=== PATIENT | male | born 1965 | race Hispanic/Latino ===

== ENCOUNTER 2016-12-18 07:04 | Emergency (ER) | payer OTHER ==
[~2016-12-18] VITALS: Ht 182.9 cm; Wt 157.8 kg
[~2016-12-18 07:04] MED LIST: ALBUTEROL0.09 MG/A1 INH; AMBIEN 10MG10 MG PO; ASPIRIN CHILDRE81 MG PO; ATORVASTATIN CA40 MG PO; CALCIPOTRIENE TOP; CLEOCIN HCL150 MG PO; CLEOCIN HCL300 MG PO; CLINDAMYCIN HY300 MG PO; CLINDAMYCIN300 MG PO; CLOPIDOGREL75 M1 PO; COSENTYX P150 MG/11 SC; DILAUDID2 M1 PO; ENBREL50 MG/ML SC; EXFORGE HCT 101 TA2 PO; FLEXERIL10 MG PO; FOLIC ACID 1 MG PO; FOLIC ACID 1MG (1 MG PO; IBUPROFEN800 M1 PO; K-TAB ER20 MEQ PO; LASIX40 M1 PO; LEVAQUIN500 MG PO; LISINOPRIL40 M1 PO; METHOTREXATE2.5 M1 PO; METOPROLOL TAR100 M1 PO; NEXIUM 40MG40 MG PO; NORCO 325 MG-51 TAB PO; OTEZLA30 MG PO; OXYCODONE HCL10 MG PO; OXYCODONE HCL30 M1 PO; OXYCODONE HYDRO30 MG; OXYCODONE HYDRO30 MG PO; PERCOCET 325 MG1 TA2 PO; PERCOCET 325 MG1 TAB PO; PLAVIX 75MG TAB75 MG PO; PRINIVIL 5MG5 MG PO; TOPCARE ASPIRI325 MG PO; TOPROL XL25 MG PO; VALIUM5 M2 PO; VIAGRA25 M1 PO; [UNRECOGNIZED DRUG - CODE] TOP
[2016-12-18 07:06] VITALS: BP 167/92
--- NOTE | 2016-12-18 07:29 | ED UPPER/LOWER EXTREMITY COMPL ---
History of Present Illness General Chief Complaint: Lower Extremity Problems Stated Complaint: LEGS PAIN S/P TAKING TALTZ Source: patient, old records Exam Limitations: no limitations Vital Signs & Intake/Output Vital Signs & Intake/Output Vital Signs Date Time Temp Pulse Resp B/P B/P Pulse O2 O2 Flow FiO2 Mean Ox Delivery Rate 12/18 0706 97.8 90 18 167/92 97 Room Air Allergies Coded Allergies: Penicillins (Mild, RASH 12/08/15) sulfamethoxazole (From BACTRIM) (Mild, RASH 12/08/15) trimethoprim (From BACTRIM) (Mild, RASH 12/08/15) Reconcile Medications Aspirin (Aspirin*) 81 MG TAB.CHEW 1 TAB PO DAILY HEART HEALTH (Reported) Clindamycin HCl 300 MG CAPSULE 1 CAP PO TID Cellulitis Clopidogrel Bisulfate (Clopidogrel) 75 MG TABLET 1 TAB PO DAILY BLOOD THINNER (Reported) Empagliflozin (Jardiance) 10 MG TABLET 1 TAB PO DAILY DIABETES (Reported) Furosemide (Lasix) 40 MG TABLET 120 MG PO DAILY WATER PILL (Reported) Ixekizumab (Taltz Autoinjector) 80 MG/ML AUTO.INJCT 1 INJ UNKNOWN (Reported) Lisinopril 40 MG TABLET 1 TAB PO DAILY HEART (Reported) Metformin HCl (Metformin HCl ER) 500 MG TAB.ER.24H 1 TAB PO DAILY DIABETES ( Reported) Metoprolol Tartrate 100 MG TABLET 1 TAB PO BID HEART (Reported) Oxycodone HCl 30 MG TABLET 1 TAB PO DAILY PRN PAIN (Reported) Potassium Chloride (K-Tab ER) 20 MEQ TABLET.ER 1 TAB PO DAILY SUPPLEMENT ( Reported) Rosuvastatin Calcium (Crestor) 10 MG TABLET 1 TAB PO DAILY CHOLESTEROL ( Reported) Secukinumab (Cosentyx Pen (2 Pens)) 150 MG/1 ML PEN.INJCTR 300 MG SC QTHURS PSORIASIS (Reported) Triage Note: PT STATES THAT THAT HE JUST STARTED A NEW MEDICATION 2 WEEKS AGO ( TALTZ) FOR HIS ARTHRITIS AND THEN WHEN HE GAVE HIMSELF THE SHOT IN BILATERAL UPPER THIGHS 2 WEEKS AGO HE HAD PAIN AND PAIN HAS BEEN CONSTANT TO INJECTION SITE, CAME IN TODAY DUE TO BOTH AREAS ARE RED AND HOT , THAT STARTED LAST PM. Triage Nurses Notes Reviewed? yes HPI: Mr Martinez is a 51-year-old gentleman with past medical history of psoriasis, hypertension and history of acute coronary syndrome who presented to the emergency department this morning complaining of pain and erythema in his bilateral anterior thighs. Patient states 2 weeks ago he started a new medication, Taltz (Ixekizumab) which was prescribed by his coal handler and pulling unit operator for worsening nonresponsive psoriasis. The patient reports that since taking this medication he felt that his psoriasis has been better controlled. He has however continued to experience tenderness at the site of where he injected the medication. Early this morning at approximately 3 AM he noted at the injection site (anterior thighs bilaterally) he developed signs of erythema and increased tenderness.The pain is rateed at 9 out of 10. Described as a sharp and shooting pain with occasional needle sensations. He subsequently decided to come into the emergency department for further evaluation. He denies any fever, chills, nausea, vomiting. His primary care physician is Dr. Gomez. His coal handler Dr. Rothman. His pulling unit operator is Dr. Spear Reports good medication compliance. (NGOZI LYN,PAUL) Past History Travel History Traveled to [place] past 21 day No Medical History Any Pertinent Medical History? 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 Yes (NGOZI LYN,PAUL) Review of Systems Review of Systems Constitutional: Denies: chills, diaphoresis, fever, malaise, weakness. Respiratory: Denies: cough, hemoptysis, orthopnea, short of breath, sputum production. Cardiovascular: Denies: chest pain, edema, orthopena, palpitations. Gastrointestinal/Abdominal: Denies: abdominal pain, constipation, diarrhea, eructation, flatus. Genitourinary: Denies: discharge, dysuria, frequency, hematuria, hesitation, nocturia. Musculoskeletal: Reports: muscle pain. Denies: back pain, gout, joint pain, joint swelling, muscle stiffness. Skin: Reports: change in skin color, erythema. Denies: lesions, lymphangitis, lumps, moles. Neurological/Psychological: Denies: ataxia, cognitive dysfunction, confusion, depressed. (PAUL MELVIN MD) Physical Exam Physical Exam General Appearance: well developed/nourished, no apparent distress, alert, awake Head: atraumatic Cardiovascular/Respiratory: normal breath sounds Peripheral Pulses: 4+ dorsalis pedis (R), 4+ dorsalis pedis (L) Gastrointestinal: Normal. BS + Back: normal inspection, normal range of motion Shoulder Left: normal range of motion Shoulder Right: normal range of motion Leg Left: pain, soft tissue tenderness, Indurated. Erythematous. 5 cm x 5 cm Leg Right: pain, soft tissue tenderness, Indurated. Erythmatous, 5 cm x 5cm. (PAUL MELVIN MD) Progress Differential Diagnosis: cellulitis, Drug Reaction. Plan of Care: Will prescribe antibiotics. Given patient's history of various medication allergies he will be given clindamycin. (APUL MELVIN MD) Departure Departure Disposition: HOME OR SELF CARE Condition: Stable Clinical Impression Primary Impression: Cellulitis Referrals: CARMEN LANZA DO (PCP/Family) Additional Instructions: Please take medication as prescribed. Please inform your primary care physician of this visit to the emergency department. Please inform your primary care physician of the treatment administered to you. Please use warm compresses at this area of redness every 8-12 hours. Please follow-up with your coal handler and pulling unit operator as soon as you leave here today. You should see them in the next 24 - 48 hours. Please inform the offices of both physicians that you were seen this morning at [facility]. We recommend that you do not take any additional medications at this present site until you have sought medical clearance from your care providers. Should you experience worsening fever, chills, nausea, vomiting or increased pain, please come back to the emergency department for additional care and workup. Departure Forms: Customer Survey General Discharge Information Prescriptions: Current Visit Scripts Clindamycin HCl 1 CAP PO TID #21 CAP (PAUL MELVIN MD) PA/DIRECTOR OF MARKET RESEARCH Co-Sign Statement Statement: ED Attending supervision documentation- [X] I saw and evaluated the patient. I have also reviewed all the pertinent lab results and diagnostic results. I agree with the findings and the plan of care as documented in the PA's/DIRECTOR OF MARKET RESEARCH's documentation. [X] I have reviewed the ED Record and agree with the PA's/DIRECTOR OF MARKET RESEARCH's documentation. [] Additions or exceptions (if any) to the PAs/DIRECTOR OF MARKET RESEARCH's note and plan are summarized below: [] (RUSH LYN,KRISTIE)
[2016-12-18] MEDS ORDERED: CRESTOR10 M1 PO (07:54)
[2016-12-18] MEDS ORDERED: JARDIANCE10 M1 PO (07:54)
[2016-12-18] MEDS ORDERED: METFORMIN HCL500 M4 PO (07:54)
[2016-12-18] MEDS ORDERED: TALTZ AUTO80 MG/1 ML (08:00)
[2016-12-18] MEDS ORDERED: ASPIRIN81 M4 PO (08:00)
[2016-12-18] MEDS ORDERED: CLINDAMYCIN HC300 M1 PO (08:17)
== END 2016-12-18 08:26 ==
LOC: ERH 07:04
DX: L03.115 Cellulitis of right lower limb (principal); L03.116 Cellulitis of left lower limb

== ENCOUNTER 2017-11-09 17:12 | Emergency (ER) | payer OTHER ==
[~2017-11-09] VITALS: Ht 182.9 cm; Wt 158.8 kg
[~2017-11-09 17:12] MED LIST changes: +ASPIRIN EC81 M1 PO; +ASPIRIN81 M4 PO; +CARDIZEM CD120 M2 PO; +CARDIZEM CD180 M1 PO; +CLINDAMYCIN HC300 M1 PO; +CRESTOR10 M1 PO; +DOXYCYCLINE HY100 M4 PO; +ELIQUIS5 M1 PO; +JARDIANCE10 M1 PO; +KEFLEX500 M1 PO; +METFORMIN HCL500 M4 PO; +OXYCODONE HCL E10 MG PO; +PERCOCET 5-3251 EACH PO; +TALTZ AUTO80 MG/1 ML
[2017-11-09 17:45] LABS: ABSOLUTE BASOPHIL COUNT 0 /CUMM (0.0-0.2); ABSOLUTE EOSINOPHIL COUNT 0.3 /CUMM (0.0-0.7); ABSOLUTE LYMPH COUNT 1.5 /CUMM (1.2-3.4); ABSOLUTE MONOCYTE COUNT 0.8 /CUMM (0.10-0.60); BASOPHIL % 0.1 % (0.0-2.0); EOSINOPHIL % 3.4 % (0-5); HEMATOCRIT 47.3 % (42-52); MEAN CORPUSCULAR VOLUME 84.7 FL (80.0-94.0); MEAN PLATELET VOLUME 8.3 FL (7.4-10.4); PLATELET COUNT 222 /CUMM (130-400); RBC DISTRIBUTION WIDTH 14.9 % (11.5-14.5); RED BLOOD CELL CT 5.59 /CUMM (4.70-6.10); WHITE BLOOD CELL COUNT 9.6 /CUMM (4.8-10.8)
--- NOTE | 2017-11-09 18:13 | ED GI/GU/ABDOMINAL COMPLAINT ---
History of Present Illness General Chief Complaint: General Adult Stated Complaint: ABD PAIN X4 DAYS, STARTED WHEN WENT TO [place] Source: patient, old records Exam Limitations: no limitations Vital Signs & Intake/Output Vital Signs & Intake/Output Vital Signs Date Time Temp Pulse Resp B/P B/P Pulse O2 O2 Flow FiO2 Mean Ox Delivery Rate 11/09 1922 98.3 88 22 148/79 99 Room Air 11/09 1920 Room Air 11/09 1716 97.4 88 20 163/84 98 Room Air Allergies Coded Allergies: Penicillins (Mild, RASH 05/29/17) sulfamethoxazole (From BACTRIM) (Mild, RASH 05/29/17) trimethoprim (From BACTRIM) (Mild, RASH 05/29/17) Reconcile Medications Apixaban (Eliquis) 5 MG TABLET 5 MG PO BID ATRIAL FIBRILLATION . Aspirin (Ecotrin*) 81 MG TABLET.DR 1 TAB PO DAILY CAD (Reported) Diltiazem HCl (Cardizem Cd) 180 MG CAP.ER.24H 1 CAP PO DAILY ATRIAL FIBRILLATION . Empagliflozin (Jardiance) 10 MG TABLET 1 TAB PO DAILY DIABETES (Reported) Ixekizumab (Taltz Autoinjector) 80 MG/ML AUTO.INJCT 1 INJ PSORIASIS (Reported ) Lisinopril 40 MG TABLET 1 TAB PO DAILY HEART (Reported) Metformin HCl (Metformin HCl ER) 500 MG TAB.ER.24H 1 TAB PO DAILY DIABETES ( Reported) Metoprolol Tartrate 100 MG TABLET 1 TAB PO BID HEART (Reported) Oxycodone HCl 30 MG TABLET 1 TAB PO Q4P PRN PAIN (Reported) Oxycodone HCl (Oxycodone HCl ER) 10 MG TAB.ER.12H 1 TAB PO BID pain Oxycodone HCl/Acetaminophen (Percocet 5-325 MG Tablet) 5 MG-325 MG TABLET 1-2 TAB PO BID pain Pantoprazole Sodium (Protonix) 40 MG TABLET.DR 1 TAB PO DAILY gastritis Potassium Chloride (K-Tab ER) 20 MEQ TABLET.ER 1 TAB PO DAILY SUPPLEMENT ( Reported) Rosuvastatin Calcium (Crestor) 10 MG TABLET 1 TAB PO DAILY CHOLESTEROL ( Reported) Triage Note: PT TO ED C/O ABD PAIN X 5 DAYS. DENIES N/V/D. HAS TAKEN OTC AND PRESCRIBED MEDS WITH NO RELIEF. Triage Nurses Notes Reviewed? yes Onset: Abrupt Duration: day(s): (5), constant, waxing and waning Timing: recent history Quality/Severity: burning (bloating) Severity Numbers: 5 Location: epigastric Radiation: no radiation Activities at Onset: eating Prior Abdominal Problems: none No Modifying Factors: none Associated Symptoms: denies HPI: 52-year-old male with history of paroxysmal A. fib on xarelto, dm resents to the ER for evaluation going up 5 days of epigastric nonradiating abdominal pain described as bloating aching after eating a ding dong and milk. Pain is been constant since she's been taking [id number] remedies without improvement he took an old oxycodone and states the symptoms resolved. No history of similar symptoms no nausea vomiting diarrhea constipation black or bloody stools. (Theo Gerber) Past History Travel History Traveled to [place] past 21 day No Medical History Any Pertinent Medical History? 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 No (Theo Gerber) Review of Systems Review of Systems Constitutional: Reports: see HPI. Comments Review of systems: See HPI, All other systems negative. Constitutional, no chills no fever, no malaise HEENT: no sore throat no congestion, no ear pain Cardiovascular: No chest pain , no palpitation Skin: no rashes, no change in skin Respiratory: No dyspnea no cough no sputum GI: No nausea no vomiting, no diarrhea, no bloating/constipation : No dysuria No hematuria, no frequency Muscle skeletal: No joint pain, no back pain, no neck pain Neurologic: , no headache Heme/endocrine: No bruising Immunology: No lymphadenopathy (Theo Gerber) Physical Exam Physical Exam General Appearance: well developed/nourished, no apparent distress, alert Gastrointestinal: soft, non-tender Comments: Well-developed well-nourished person in no acute distress HEENT: Normal EENT exam; PERRL, EOMI, HEAD is atraumatic. moist mucous membranes. Neck: Supple, normal range of motion without pain or tenderness Back: Nontender, no CVA tenderness. Full range of motion Cardiovascular: Regular rate and rhythms no murmurs rubs or gallops, normal JVP Respiratory: Chest nontender.There were no bony deformities, no asymmetry. No respiratory distress. Patient speaking in full complete sentences. Breath sounds clear to auscultation bilaterally: NO W/R/R Abdomen: Soft, obese nontender, neg murphys, nondistended, no appreciable organomegaly. Normal bowel sounds. No rebound/guarding, No appreciable enlargement of the abdominal aorta, No ascites. Extremity: No edema, full range of motion of extremities, Neuro: Alert oriented x3, motor sensory normal, There were no obvious focal neurologic abnormalities. Skin: No appreciable rash on exposed skin, skin is warm and dry. No jaundice Psych: Mood and affect is normal, memory and judgment is normal. Core Measures ACS in differential dx? No Sepsis Present: No Sepsis Focused Exam Completed? No (Theo Gerber) Progress Differential Diagnosis: appendicitis, biliary colic, bowel obstruction, colon cancer, cholecystitis, diverticulitis, inflamm bowel dis, pancreatitis, peptic ulcer, PUD/GERD, perforated viscous, pyelonephritis, ureterolithiasis Plan of Care: Orders Procedure Date/time Status URINALYSIS 11/09 1717 Complete COMPREHENSIVE METABOLIC PANEL 11/09 1717 Complete CBC WITHOUT DIFFERENTIAL 11/09 1717 Complete Laboratory Tests 11/09/17 1824: Anion Gap 13, Estimated GFR > 60, BUN/Creatinine Ratio 20.0, Glucose 171 H, Calcium 9.3, Total Bilirubin 0.6, AST 18, ALT 28, Alkaline Phosphatase 92, Total Protein 7.4, Albumin 4.1, Globulin 3.3, Albumin/Globulin Ratio 1.2 11/09/17 1725: Urine Color YEL, Urine Clarity CLEAR, Urine pH 6.5, Ur Specific [place] 1.015, Urine Protein NEG, Urine Ketones NEG, Urine Nitrite NEG, Urine Bilirubin NEG, Urine Urobilinogen 0.2, Ur Leukocyte Esterase NEG, Ur Microscopic SEDIMENT EXAMINED, Urine RBC 1-3, Urine WBC 1-3 H, Urine Hemoglobin SMALL H, Urine Glucose >=1000 H 11/09/17 1720: CBC w Diff NO MAN DIFF REQ, RBC 5.59, MCV 84.7, MCH 28.0, MCHC 33.0, RDW 14.9 H , MPV 8.3, Gran % 73.0, Lymphocytes % 15.3 L, Monocytes % 8.2, Eosinophils % 3.4, Basophils % 0.1, Absolute Granulocytes 7.0 H, Absolute Lymphocytes 1.5, Absolute Monocytes 0.8 H, Absolute Eosinophils 0.3, Absolute Basophils 0 gi cocktail ordered.labs ordered, 1944 on repeat evaluation patient's abdominal exam remains soft Nontender negative Sawyer sign he reports slight improvement in symptoms with GI cocktail there is no chest pain symptoms have been intermittent for the past 5 days after he is visiting his mother in [place] I do not believe he requires any further workup at this time including imaging giving his labs and unremarkable exam. I advised close follow up with his primary care physician on Saturday return precautions were discussed at least he feels comfortable plan discharge at this time. Initial ED EKG: none (Theo Gerber) Departure Departure Time of Disposition: 1940 Disposition: HOME OR SELF CARE Condition: Stable Clinical Impression Primary Impression: Abdominal pain Referrals: Jerzy Gomez MD (PCP/Family) Additional Instructions: Follow-up with your primary care physician. [place] diet, clear liquids. Protonix as discussed. return to ER anytime sooner with any concerns Departure Forms: Customer Survey General Discharge Information Prescriptions: Current Visit Scripts Pantoprazole Sodium (Protonix) 1 TAB PO DAILY #14 TAB (Theo Gerber) PA/ADDRESS CHANGE CLERK Co-Sign Statement Statement: ED Attending supervision documentation- I saw and evaluated the patient. I have also reviewed all the pertinent lab results and diagnostic results. I agree with the findings and the plan of care as documented in the PA's/ADDRESS CHANGE CLERK's documentation. x I have reviewed the ED Record and agree with the PA's/ADDRESS CHANGE CLERK's documentation. [] Additions or exceptions (if any) to the PAs/ADDRESS CHANGE CLERK's note and plan are summarized below: [] (Ayana LYN,Delvis)
[2017-11-09 19:23] VITALS: BP 148/79
[2017-11-09] MEDS ORDERED: PROTONIX40 M3 PO (19:43)
== END 2017-11-09 20:14 ==
LOC: ERH 17:12
PROVIDERS: Physician Assistant Medical
DX: R10.13 Epigastric pain (principal)
CPT/HCPCS: 81001

== ENCOUNTER 2018-03-17 08:46 | Emergency (ER) | payer OTHER ==
[~2018-03-17] VITALS: Ht 182.9 cm; Wt 155.6 kg
[~2018-03-17 08:46] MED LIST changes: +PROTONIX40 M3 PO
[2018-03-17 08:48] VITALS: BP 156/84
--- NOTE | 2018-03-17 09:32 | RADIOLOGY REPORT ---
EXAMINATION: XR KNEE, LEFT CLINICAL INFORMATION: Fall. Swelling. Pain. COMPARISON: Right knee radiographs 01/23/2015. TECHNIQUE: Four views of the left knee. FINDINGS: There is asymmetric degenerative narrowing of the medial compartment of the left knee with associated sclerotic subchondral changes and marginal hypertrophic spurring. No evidence of acute fracture or dislocation. There is a prominent osteophyte at the quadriceps insertion on the patella. Prominent suprapatellar joint effusion. Soft tissues are otherwise unremarkable. IMPRESSION: Asymmetric degenerative arthrosis of the medial compartment of the left knee. Prominent suprapatellar joint effusion. No evidence of acute fracture or dislocation.
[2018-03-17] MEDS ORDERED: PERCOCET 5-3251 EACH PO (09:40)
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
== END 2018-03-17 09:40 ==
LOC: ERH 08:46
DX: M25.562 Pain in left knee (principal); R73.03 Prediabetes; Z79.84 Long term (current) use of oral hypoglycemic drugs; Z79.82 Long term (current) use of aspirin
CPT/HCPCS: 73560-LT